=== PATIENT | female | born 1945 | race Two or more races ===

== ENCOUNTER 2022-04-11 07:50 | Day surgery (SDC) | payer OTHER ==
[~2022-04-11] VITALS: Ht 152.4 cm; Wt 84.4 kg
[~2022-04-11 07:50] MED LIST: BENADR PO; CLONAZEPAM1 MG PO; GABAPENT PO; SIMVAST PO
[2022-04-11] MEDS ORDERED: ULTRACET PO (13:47)
== END 2022-04-11 16:45 | disposition home or self-care (01) ==
LOC: CIR.AMB 07:50
PROVIDERS: ATTEND Surgery
DX: K31.7 Polyp of stomach and duodenum (principal); Z91.018 Allergy to other foods; K64.9 Unspecified hemorrhoids; Z20.822 Contact with and (suspected) exposure to COVID-19; J45.909 Unspecified asthma, uncomplicated; Z77.22 Contact with and (suspected) exposure to environmental tobacco smoke (acute) (chronic); G43.909 Migraine, unspecified, not intractable, without status migrainosus